=== PATIENT | female | born 1985 | race Caucasian/White ===

== ENCOUNTER 2020-08-03 10:56 | Outpatient (NON) | payer OTHER, SELFPAY ==
[2020-08-04 00:16] LABS: SARS-CoV-2 RNA PCR Positive
== END 2020-08-03 10:57 ==
PROVIDERS: Visit Provider Family Medicine Sports Medicine
DX: U07.1 COVID-19 (principal); R09.81 Nasal congestion
CPT/HCPCS: C9803; U0003; U0005